=== PATIENT | male | born 1965 | race Caucasian/White ===

== ENCOUNTER 2018-02-22 10:28 | Emergency (ER) | payer OTHER ==
[~2018-02-22] VITALS: Ht 170.1 cm; Wt 89.4 kg
[2018-02-22] MEDS ORDERED: KNEE STABILIZE1 EACH MC (12:23)
[2018-02-22] MEDS ORDERED: Motrin,Rufen800 MG PO (12:23)
== END 2018-02-22 12:37 | disposition home or self-care (01) ==
LOC: ED 10:28
DX: S83.91XA Sprain of unspecified site of right knee, initial encounter (principal); W01.0XXA Fall on same level from slipping, tripping and stumbling without subsequent striking against object, initial encounter; Y93.89 Activity, other specified; Y92.89 Other specified places as the place of occurrence of the external cause; Y99.8 Other external cause status

== ENCOUNTER 2023-04-20 19:15 | Emergency (ER) | payer OTHER ==
[~2023-04-20] VITALS: Ht 167.6 cm; Wt 86.2 kg
[~2023-04-20 19:15] MED LIST: KNEE STABILIZE1 EACH MC; Motrin,Rufen800 MG PO
== END 2023-04-20 20:13 | disposition home or self-care (01) ==
LOC: ED 19:15
DX: S05.02XA Injury of conjunctiva and corneal abrasion without foreign body, left eye, initial encounter (principal); S01.03XA Puncture wound without foreign body of scalp, initial encounter; Z79.899 Other long term (current) drug therapy; V89.2XXA Person injured in unspecified motor-vehicle accident, traffic, initial encounter; Y93.I9 Activity, other involving external motion; Y92.488 Other paved roadways as the place of occurrence of the external cause; Y99.8 Other external cause status